=== PATIENT | female | born 1955 | race Caucasian/White ===

== ENCOUNTER 2022-04-20 12:08 | Emergency (ER) | payer SELFPAY ==
[~2022-04-20] VITALS: Ht 165.1 cm; Wt 63.6 kg
[~2022-04-20 12:08] MED LIST: ATENOLOL25 MG PO; BUPRENORPHINE SL; CHANTIX STARTIN0.5 & PO; CLONAZEPAM1 MG PO; CRESTOR10 MG OR; DIAZEPAM10 MG PO; ENJUVIA0.3 MG PO; ESTRACE1 MG OR; FLEXERIL10 MG PO; NALOXONE SL; NAPROSYN500 MG OR; NO HOME MEDS; NORCO1 TA1 PO; RYBIX ODT50 MG PO; SUBOXONE1 MI1 SL; SUBUTEX8 MG SL; TENORETIC 501 TAB PO; TRAMADOL HCL50 MG PO; ULTRAM50 M1 PO; VALIUM5 MG PO; XANAX0.5 MG PO; ZPAK PO
[2022-04-20 12:18] VITALS: BP 156/80
[2022-04-20] MEDS ORDERED: LORAZEPAM0.5 MG PO (12:22)
[2022-04-20 13:00] VITALS: BP 144/78
[2022-04-20] MEDS ORDERED: KEFLEX500 MG PO ×3 (13:18→13:40)
[2022-04-20 13:30] VITALS: BP 151/87
== END 2022-04-20 13:42 | disposition home or self-care (01) | DRG 153 ==
LOC: ED 12:08
DX: J02.9 Acute pharyngitis, unspecified (principal); F17.200 Nicotine dependence, unspecified, uncomplicated; Z20.822 Contact with and (suspected) exposure to COVID-19

== ENCOUNTER 2022-04-28 12:13 | Emergency (ER) | payer SELFPAY ==
[~2022-04-28] VITALS: Ht 165.1 cm; Wt 81.8 kg
[~2022-04-28 12:13] MED LIST changes: +KEFLEX500 MG PO; +LORAZEPAM0.5 MG PO
[2022-04-28 12:29] VITALS: BP 148/95
[2022-04-28 12:30] VITALS: BP 161/104
[2022-04-28] MEDS ORDERED: ATIVAN1 MG PO (12:43)
[2022-04-28 12:45] VITALS: BP 140/89
== END 2022-04-28 12:57 | disposition home or self-care (01) | DRG 951 ==
LOC: ED 12:13
DX: Z76.0 Encounter for issue of repeat prescription (principal); F41.9 Anxiety disorder, unspecified; F17.200 Nicotine dependence, unspecified, uncomplicated

== ENCOUNTER 2022-06-14 14:20 | Emergency (ER) | payer MEDICARE ==
[~2022-06-14] VITALS: Ht 165.1 cm; Wt 80.0 kg
[~2022-06-14 14:20] MED LIST changes: +ATIVAN1 MG PO
[2022-06-14 14:43] VITALS: BP 142/74
[2022-06-14 14:46] VITALS: BP 129/79
[2022-06-14] MEDS ORDERED: MOBIC7.5 M1 PO (15:53)
[2022-06-14 16:08] VITALS: BP 129/79
[2022-06-15] MEDS ORDERED: VOLTAREN1%GEL TOP (17:16)
== END 2022-06-14 16:15 | disposition home or self-care (01) ==
LOC: ED 14:20
DX: M51.36 Other intervertebral disc degeneration, lumbar region (principal); F17.210 Nicotine dependence, cigarettes, uncomplicated

== ENCOUNTER 2022-06-19 16:10 | Emergency (ER) | payer MEDICARE ==
[~2022-06-19] VITALS: Ht 165.1 cm; Wt 81.8 kg
[~2022-06-19 16:10] MED LIST changes: +MOBIC7.5 M1 PO; +VOLTAREN1%GEL TOP
[2022-06-19] MEDS ORDERED: FLEXERIL5 M1 PO (17:00)
[2022-06-19 17:25] VITALS: BP 135/73
== END 2022-06-19 17:15 | disposition home or self-care (01) ==
LOC: ED 16:10
DX: R10.32 Left lower quadrant pain (principal); F17.210 Nicotine dependence, cigarettes, uncomplicated

== ENCOUNTER 2022-06-21 14:40 | Emergency (ER) | payer MEDICARE ==
[~2022-06-21] VITALS: Ht 165.1 cm; Wt 68.0 kg
[~2022-06-21 14:40] MED LIST changes: +FLEXERIL5 M1 PO
[2022-06-21 17:26] VITALS: BP 127/75
[2022-06-21 17:31] VITALS: BP 136/64
[2022-06-21 18:01] VITALS: BP 128/68
[2022-06-21 18:07] LABS: HEMATOCRIT 40.7 % (37.0-47.0); HEMOGLOBIN 13.6 g/dl (12.0-16.0); IMMATURE GRANULOCYTES 0.2 % (0.0-5.0); MEAN CELL VOLUME 87.2 fL CALC (80.0-100.0); MEAN CORPUSCULAR HGB 29.1 pG CALC (26.0-32.0); MEAN CORPUSCULAR HGB CONC 33.4 g/dL CAL (32.0-36.0); NEUT# 5.39 thou/uL (2.00-7.15); RED BLOOD COUNT 4.67 mill/uL (4.20-5.60); RED CELL DISTRI WIDTH 12.5 % (11.5-15.5)
[2022-06-21 18:23] LABS: ALBUMIN 4.2 g/dL (3.2-5.0); ALKALINE PHOSPHATASE 99 u/l (38-126); ANION GAP 12 (6-22 (CALC)); BUN 21 mg/dL (8-23); BUN/CREATININE RATIO 25 (12-20 (CALC)); CARBON DIOXIDE 25 mmol/l (22-30); CHLORIDE 105 mmol/l (95-108); CREATININE 0.9 mg/dL (0.5-1.0); GFR FOR AFR.AMER. > 60 ML/MIN (>=60 (CALC)); GFR OTHER RACES > 60 ML/MIN (>=60 (CALC)); POTASSIUM 4.4 mmol/l (3.5-5.1); SGOT/AST 30 u/l (9-36); SODIUM 138 mmol/l (137-146); TOTAL PROTEIN 7.7 g/dL (6.3-8.2)
[2022-06-21 18:25] LABS: BILIRUBIN, TOTAL 0.2 mg/dL (0.0-1.4)
[2022-06-21 18:31] VITALS: BP 127/60
[2022-06-21 19:28] LABS: URINE BILIRUBIN - DIPSTICK NEGATIVE (NEGATIVE); URINE BLOOD DIPSTICK NEGATIVE (NEGATIVE); URINE COLOR YELLOW; URINE GLUCOSE - DIPSTICK NEGATIVE (NEGATIVE); URINE KETONE NEGATIVE (NEGATIVE); URINE LEUK ESTERASE NEGATIVE (NEGATIVE); URINE NITRITE - DIPSTICK NEGATIVE (Negative); URINE PH 5.5 (4.5-8.0); URINE PROTEIN - DIPSTICK NEGATIVE (NEG-TRACE); URINE SPECIFIC GRAVITY >=1.030; URINE UROBILINOGEN - DIPSTICK 0.2 E.U./dL (0.2)
[2022-06-21] MEDS ORDERED: MEDDOSEPAK PO (20:47)
[2022-06-21 22:23] VITALS: BP 127/60
== END 2022-06-21 22:23 | disposition home or self-care (01) ==
LOC: ED 14:40
PROVIDERS: Nurse Practitioner
DX: R10.32 Left lower quadrant pain (principal); F17.210 Nicotine dependence, cigarettes, uncomplicated
CPT/HCPCS: Q9967